=== PATIENT | female | born 1955 | race Caucasian/White ===

== ENCOUNTER 2017-06-28 09:36 | Inpatient (IN) | payer OTHER ==
[~2017-06-28] VITALS: Ht 160 cm; Wt 62.1 kg
[~2017-06-28 09:36] MED LIST: AMLODIPINE BESY10 MG PO; ASPIR 8181 M1 PO; ASPIR-LOW81 MG PO; DAILY VALUE1 EACH PO; HYOSCYAMINE0.125 MG PO; KRILL OIL500 MG PO; LIPITOR40 MG PO; LISINOPRIL20 MG PO; METFORMIN HCL1000 MG PO; VICTOZA 2-0.6 MG/0.1 SC; VITAMIN C W/AC500 M1 PO; VITAMIN E400 UNIT PO; ZESTRIL20 MG PO
[2017-06-28 09:59] LABS: HEMATOCRIT 35.3 % (36.0-46.0); HEMOGLOBIN 11.4 G/DL (11.9-15.5); MCH 28.6 PG (29.0-34.0); MCHC 32.3 G/DL (30.0-36.0); MCV 88.7 FL (83-99); PLATELET COUNT 301 K/uL (156-360); RBC DIS.WIDTH-CV 13.7 % (11.8-14.6); RBC DIS.WIDTH-SD 44.6 % (39-53); RED BLOOD COUNT 3.98 M/uL (3.80-5.20); WHITE BLOOD COUNT 10.9 K/uL (4.1-10.2)
[2017-06-28 10:07] LABS: CHLORIDE 108 mEq/L (99-109); SODIUM 139 mEq/L (136-147)
[2017-06-28 10:09] LABS: GLUCOSE 233 mg/dL (70-99)
[2017-06-28 10:13] LABS: CREATININE 0.8 mg/dL (0.6-1.3); GFR ESTIMATE (CALCULATED) > 59 mL/min/
[2017-06-28 10:14] LABS: UREA NITROGEN (BUN) 21 mg/dL (9-23)
[2017-06-28 10:19] LABS: TROP-I INTERPRETATION NEGATIVE; TROPONIN-I 0.02 ng/mL (0.0-0.30)
[2017-06-28] MEDS ORDERED: DICYCLOMINE HCL10 MG PO (11:08)
[2017-06-28 11:15] LABS: APPEARANCE CLEAR ((CLEAR)); BILIRUBIN NEGATIVE; BLOOD NEGATIVE; COLOR YELLOW ((YELLOW)); GLUCOSE (STRIP) 50; KETONES NEGATIVE; LEUKOCYTES NEGATIVE; NITRITE NEGATIVE; PROTEIN (STRIP) 100; UROBILINOGEN 0.2 MG/DL (0.2-1.0)
[2017-06-28 11:19] LABS: BACTERIA NONE SEEN /HPF; EPITHELIAL CELLS NONE SEEN /HPF; MUCUS TRACE /LPF; RED BLOOD CELLS 0-5 /HPF (0-5); UCUL ADDED? NO; WHITE BLOOD CELLS 0-5 /HPF (0-5)
[2017-06-28 17:15] LABS: TROP-I INTERPRETATION NEGATIVE; TROPONIN-I 0.13 ng/mL (0.0-0.30)
[2017-06-28 22:56] LABS: TROP-I INTERPRETATION NEGATIVE; TROPONIN-I 0.08 ng/mL (0.0-0.30)
[2017-06-29 03:10] VITALS: BP 146/67
[2017-06-29 06:17] LABS: CHLORIDE 105 MEQ/L (99-109); CREATININE 0.9 MG/DL (0.6-1.3); GFR ESTIMATE (CALCULATED) > 59 mL/min/; GLUCOSE 134 mg/dL (70-99); POTASSIUM 3.9 MEQ/L (3.7-5.4); SODIUM 140 MEQ/L (136-147); UREA NITROGEN (BUN) 21 mg/dL (9-23)
[2017-06-29 08:01] VITALS: BP 178/86
[2017-06-29 08:53] LABS: ABSOLUTE RETICULOCYTE CT. 0.1 M/uL (0.02-0.08); IMM.RETIC FRACTION 13.5 % (3-19); RETIC HGB EQUIVALENT 32.2 (28-36); RETICULOCYTE COUNT 2.2 % (0.5-1.8)
[2017-06-29 09:24] LABS: FERRITIN 18 NG/ML (10-291)
[2017-06-29 09:41] LABS: IRON 37 MCG/DL (35-150); TRANSFERRIN (TIBC) 261.9 mg/dL (215-380); TRANSFERRIN SATUR. 14 % (20-55)
[2017-06-29 10:38] LABS: FOLIC ACID (FOLATE) > 22.0 NG/ML (5.0-22.0)
[2017-06-29 10:53] VITALS: BP 160/80
[2017-06-29 15:39] VITALS: BP 148/80
[2017-06-29 19:40] VITALS: BP 172/72
[2017-06-29 22:34] VITALS: BP 143/70
[2017-06-30] VITALS (7 sets, daily range): BP systolic 131–194; BP diastolic 65–90
[2017-06-30 05:07] LABS: BASOPHIL (%) 0.7 % (0-1); BASOPHIL COUNT 0.1 K/uL (0-0.1); EOSINOPHIL (%) 3.1 % (0-5); EOSINOPHIL COUNT 0.3 K/uL (0-0.3); HEMATOCRIT 30.1 % (36.0-46.0); HEMOGLOBIN 9.9 G/DL (11.9-15.5); IMMATURE GRANULOCYTE (%) 0.3 % (0.0-0.7); LYMPHOCYTE (%) 9.8 % (15-42); MCH 28.4 PG (29.0-34.0); MCHC 32.9 G/DL (30.0-36.0); MCV 86.2 FL (83-99); MONOCYTE (%) 6.4 % (3-12); MONOCYTE COUNT 0.7 K/uL (0-0.8); NEUTROPHIL (%) 79.7 % (45-76); NEUTROPHIL COUNT 8.3 K/uL (1.8-6.4); RBC DIS.WIDTH-CV 13.7 % (11.8-14.6); RED BLOOD COUNT 3.49 M/uL (3.80-5.20); WHITE BLOOD COUNT 10.4 K/uL (4.1-10.2)
[2017-06-30 05:22] LABS: ALBUMIN 3.4 g/dL (3.2-4.8); CHLORIDE 107 mEq/L (99-109); POTASSIUM 3.9 mEq/L (3.7-5.4); SODIUM 141 mEq/L (136-147)
[2017-06-30 05:24] LABS: TOTAL PROTEIN 4.9 g/dL (6.4-8.3)
[2017-06-30 05:26] LABS: GLUCOSE 63 mg/dL (70-99); TOTAL BILIRUBIN 1.1 mg/dL (0.0-1.0)
[2017-06-30 05:28] LABS: ALKALINE PHOSPHATASE 47 IU/L (3-129); CREATININE 0.9 mg/dL (0.6-1.3); GFR ESTIMATE (CALCULATED) > 59 mL/min/
[2017-06-30 05:29] LABS: UREA NITROGEN (BUN) 21 mg/dL (9-23)
[2017-06-30 05:30] LABS: AST (GOT) 18 IU/L (2-34)
[2017-06-30 05:31] LABS: ALT (GPT) 14 IU/L (3-49)
[2017-06-30 05:59] LABS: PLAT.SUFFICIENCY ADEQUATE
[2017-06-30 06:10] LABS: PLATELET COUNT 195 K/uL (156-360)
[2017-07-01 00:10] VITALS: BP 143/65
[2017-07-01 04:20] VITALS: BP 162/72
[2017-07-01 06:19] LABS: CHLORIDE 100 MEQ/L (99-109); CREATININE 1.1 MG/DL (0.6-1.3); GFR ESTIMATE (CALCULATED) 54 mL/min/; POTASSIUM 3.9 MEQ/L (3.7-5.4); SODIUM 138 MEQ/L (136-147); UREA NITROGEN (BUN) 30 mg/dL (9-23)
[2017-07-01 06:34] LABS: GLUCOSE 174 mg/dL (70-99)
[2017-07-01 08:18] VITALS: BP 160/70
[2017-07-01] MEDS ORDERED: LISINOPRIL40 MG PO (10:00)
[2017-07-01] MEDS ORDERED: LOPRESSOR50 MG PO (10:00)
[2017-07-01] MEDS ORDERED: CYANOCOBALAM1000 MCG PO (10:00)
[2017-07-01] MEDS ORDERED: HYDROCHLOROTHIA25 MG PO (10:00)
== END 2017-07-01 10:50 | disposition home or self-care (01) | DRG 189 ==
LOC: EME 09:36 → 4EAST 13:45 → EDOF 13:45 → ENRESERV 13:48 → 4EAST 06-29 02:42
PROVIDERS: Hospitalist; Internal Medicine; Internal Medicine Cardiovascular Disease; Physician Assistant
PROC: 5A09357 Assistance with Respiratory Ventilation, Less than 24 Consecutive Hours, Continuous Positive Airway Pressure (ICD-10-PCS; principal; 2017-06-28)
DX: J96.01 Acute respiratory failure with hypoxia (principal); I11.0 Hypertensive heart disease with heart failure; I50.21 Acute systolic (congestive) heart failure; I16.0 Hypertensive urgency; D64.9 Anemia, unspecified; E78.5 Hyperlipidemia, unspecified; E11.319 Type 2 diabetes mellitus with unspecified diabetic retinopathy without macular edema; I42.9 Cardiomyopathy, unspecified; I27.20 Pulmonary hypertension, unspecified; I07.1 Rheumatic tricuspid insufficiency
CPT/HCPCS: 71045; 71275; 80048; 80053; 81003; 82565; 82607; 82728; 82746; 82948; 83036; 83540; 83880; 84466; 84484; 84520; 85025; 85027; 85046; 85379; 87040; 93005; 93306; 94002; 99281; 99285; J1650; J1815; J1940; J7644